=== PATIENT | female | born 1965 | race Caucasian/White ===

== ENCOUNTER 2016-11-24 20:38 | Emergency (ER) | payer OTHER ==
[~2016-11-24] VITALS: Ht 162.6 cm; Wt 113.4 kg
[~2016-11-24 20:38] MED LIST: ALBUTEROL0.09 MG/A2 INH; BROMFED DM COU473 ML PO; CYCLOBENZAPRINE10 M1 PO; ERYTHROMYCIN5 MG/GM OPH; LABETALOL HCL200 M1 PO; NAPROSYN500 M1 PO; ORPHENADRINE C100 MG PO; PREDNISONE 20MG20 MG PO; VICODIN5-300 PO
--- NOTE | 2016-11-24 21:51 | ED HEADACHE COMPLAINT ---
History of Present Illness General Chief Complaint: Headache Stated Complaint: "PER PT BAD RANDALL SINCE FRIDAY" Source: patient Exam Limitations: no limitations Vital Signs & Intake/Output Vital Signs & Intake/Output Vital Signs Date Time Temp Pulse Resp B/P B/P Pulse O2 O2 Flow FiO2 Mean Ox Delivery Rate 11/24 2229 98.0 76 17 137/83 95 Room Air 11/24 2229 Room Air 11/243 98.3 88 16 145/85 94 Room Air ED Intake and Output 11/25 0000 11/24 1200 Intake Total Output Total Balance Patient 250 lb Weight Allergies Coded Allergies: aspirin (Intermediate, HIVES 09/23/15) Reconcile Medications Albuterol (Albuterol Inhaler) 0.09 MG/Actuation MISAEL 2 INH INH Q6 PRN WHEEZING, COUGH BROMPHENIRAMINE/PSEUDOEPHED/DM (Bromfed Dm Cough Syrup) 473 ML SYR 1-2 TSP PO Q6P PRN COLD SYMPTOMS Cyclobenzaprine HCl 10 MG TABLET 1 TAB PO QPM muscle spasm ERYTHROMYCIN BASE (Erythromycin) 5 MG/GRAM (0.5 %) OINT...G. 1 BRANDON OPH 4XDP BLEPHRITIS,STYE apply 1 cm ribbon into the lower conjunctival sac HYDROCODONE/ACETAMINOPHEN (Hydrocodon-Acetaminophen 5-325) 1 TAB TAB 1 TAB PO TID pain Labetalol HCl 200 MG TABLET 1 TAB PO BID high blood pressure Naproxen (Naprosyn) 500 MG TABLET 1 TAB PO BID PRN calf pain Orphenadrine Citrate 100 MG TABLET.ER 1 TAB PO BID PRN MUSCLE PAIN/SPASMS Prednisone 20 MG TAB 2 TAB PO DAILY BRONCHITIS Triage Note: TRIAGE: BAD HEADACHE SINCE FRIDAY UNIMPROVED WITH PRESCRIBED MIGRAINE MEDS IMATREX TOOK LAST DOSE 4 HOURS AGO. 9/10 PAIN TO LEFT PARIETAL AREA. REPORTS BLURRED VISION TO LEFT EYE. PUPILS EQUAL AND REACTIVE TO LIGHT AND DEMONSTRATES GOOD FOCAL CONTROL. +PHOTOSENSITIVITY, DENIES N/V. SPEECH CLEAR. AFEBRILE IN TRIAGE Triage Nurses Notes Reviewed? yes Onset: Gradual Duration: day(s):, waxing and waning Timing: recent history Quality/Severity: moderate Head Injury Location: global, left sided Modifying Factors: Improves With: medication, rest. Associated Symptoms: nausea, photophobia HPI: 51-year-old woman history of migraine headaches on Imitrex, presents with 3 day history of left-sided headache consistent with her prior migraines. She states that she took her Imitrex with only minimal to moderate effect. She has no fever chills chest pain and syncopal type symptoms or dizziness. She does confer photophobia and nausea. She is otherwise well and has no other concerns. Past History Travel History Traveled to [place] past 21 day No Medical History Any Pertinent Medical History? see below for history Neurological: migraine EENT: NONE Cardiovascular: hypertension Respiratory: NONE Gastrointestinal: NONE Hepatic: NONE Renal: NONE Musculoskeletal: NONE Psychiatric: NONE Endocrine: NONE Blood Disorders: NONE Cancer(s): NONE ELECTRIC PILE DRIVER OPERATOR/Reproductive: NONE Surgical History Surgical History: appendectomy Psychosocial History What is your primary language Frisian Tobacco Use: Current Daily Use Daily Tobacco Use Amount/Type: =< 4 Cigarettes daily ETOH Use: denies use Illicit Drug Use: denies illicit drug use Family History Hx Contributory? No Review of Systems Review of Systems Constitutional: Reports: no symptoms. Eyes: Reports: no symptoms. Ears, Nose, Throat, Mouth: Reports: no symptoms. Respiratory: Reports: no symptoms. Cardiovascular: Reports: no symptoms. Gastrointestinal/Abdominal: Reports: no symptoms. Genitourinary: Reports: no symptoms. Musculoskeletal: Reports: no symptoms. Skin: Reports: no symptoms. Neurological/Psychological: Reports: no symptoms. Hematologic/Endocrine: Reports: no symptoms. Endocrine: Reports: no symptoms. Immunologic/Allergic: Reports: no symptoms. All Other Systems: Reviewed and Negative Physical Exam Physical Exam General Appearance: well developed/nourished, mild distress Head: atraumatic, normal appearance Eyes: Bilateral: normal appearance. Ears, Nose, Throat: normal pharynx, normal ENT inspection, hearing grossly normal, normal tm's bilaterally Neck: normal inspection, supple, full range of motion Respiratory: normal breath sounds, chest non-tender, no respiratory distress, quiet respiration, lungs clear Cardiovascular: regular rate/rhythm Gastrointestinal: normal bowel sounds, soft, non-tender, no organomegaly Back: normal inspection, normal range of motion, vertebral tenderness Extremities: normal inspection, normal capillary refill, normal range of motion, no edema Psychiatric: awake, alert, oriented x 3 Cranial Nerves: normal hearing, normal speech, PERRL Coordination/Gait: normal finger to nose, normal gait Motor/Sensory: no motor/sensory deficits Reflexes: 1+: bicep (R), bicep (L). Skin: intact, normal color, warm/dry Core Measures Severe Sepsis Present: No Septic Shock Present: No Progress Differential Diagnosis: migraine vs tension headache vs other. Plan of Care: pt given supportive medications with good response... pt to follow up with pmd. Departure Departure Disposition: HOME OR SELF CARE Condition: Stable Clinical Impression Primary Impression: Migraine headache Referrals: VANE TOMLIN APRN (PCP/Family) Departure Forms: Customer Survey General Discharge Information
[2016-11-24 22:30] VITALS: BP 137/83
== END 2016-11-24 22:31 ==
LOC: ERH 20:38
DX: G43.909 Migraine, unspecified, not intractable, without status migrainosus (principal)
CPT/HCPCS: 96372; J1885; J2550

== ENCOUNTER 2016-12-04 08:24 | Emergency (ER) | payer OTHER ==
[~2016-12-04] VITALS: Ht 162.6 cm; Wt 113.4 kg
[2016-12-04 08:33] VITALS: BP 125/89
--- NOTE | 2016-12-04 08:42 | ED GI/GU/ABDOMINAL COMPLAINT ---
History of Present Illness General Chief Complaint: Abdominal Pain/Flank Pain Stated Complaint: ABD PAIN Source: patient, old records Exam Limitations: no limitations Vital Signs & Intake/Output Vital Signs & Intake/Output Vital Signs Date Time Temp Pulse Resp B/P B/P Pulse O2 O2 Flow FiO2 Mean Ox Delivery Rate 12/04 0833 98.0 95 20 125/89 98 Room Air Allergies Coded Allergies: aspirin (Intermediate, HIVES 09/23/15) Reconcile Medications Albuterol (Albuterol Inhaler) 0.09 MG/Actuation MISAEL 2 INH INH Q6 PRN WHEEZING, COUGH BROMPHENIRAMINE/PSEUDOEPHED/DM (Bromfed Dm Cough Syrup) 473 ML SYR 1-2 TSP PO Q6P PRN COLD SYMPTOMS Cyclobenzaprine HCl 10 MG TABLET 1 TAB PO QPM muscle spasm ERYTHROMYCIN BASE (Erythromycin) 5 MG/GRAM (0.5 %) OINT...G. 1 BRANDON OPH 4XDP BLEPHRITIS,STYE apply 1 cm ribbon into the lower conjunctival sac HYDROCODONE/ACETAMINOPHEN (Hydrocodon-Acetaminophen 5-325) 1 TAB TAB 1 TAB PO TID pain Labetalol HCl 200 MG TABLET 1 TAB PO BID high blood pressure Naproxen (Naprosyn) 500 MG TABLET 1 TAB PO BID PRN calf pain Orphenadrine Citrate 100 MG TABLET.ER 1 TAB PO BID PRN MUSCLE PAIN/SPASMS Prednisone 20 MG TAB 2 TAB PO DAILY BRONCHITIS Triage Note: PT C/O UPPER MID ABDOMINAL PAIN THAT SHOOTS DOWN INTO HER LOWER ABDOMEN. PT STATES HE ABDOMEN IS DISTENDED "HARD A ROCK". PT DENIES N,V,D. STATES PAIN BEGAN AT 0600. LAST NBM THIS MORNING Triage Nurses Notes Reviewed? yes ? n Is pt currently ? No HPI: Patient was at work this morning when she developed a sharp stabbing pain to her right upper quadrant. The pain is been constant. There is no nausea or vomiting. There are no aggravating or mitigating factors. She rates the pain at 7 out of 10. She occasionally gets a spasm of pain in her bilateral lower quadrants' seconds and then go away. Patient has never had pain like this before. Patient comes in for evaluation. Patient denies any chest pain or shortness of breath. There is no diarrhea. There is no dysuria or hematuria. Past History Travel History Traveled to [place] past 21 day No Medical History Any Pertinent Medical History? see below for history Neurological: migraine EENT: NONE Cardiovascular: hypertension Respiratory: NONE Gastrointestinal: NONE Hepatic: NONE Renal: NONE Musculoskeletal: NONE Psychiatric: NONE Endocrine: NONE Blood Disorders: NONE Cancer(s): NONE CLERICAL COORDINATOR/Reproductive: NONE Surgical History Surgical History: appendectomy Psychosocial History What is your primary language Pakistani Tobacco Use: Current Daily Use Daily Tobacco Use Amount/Type: => 5 Cigarettes daily ETOH Use: denies use Illicit Drug Use: denies illicit drug use Family History Hx Contributory? No Review of Systems Review of Systems Constitutional: Reports: no symptoms. EENTM: Reports: no symptoms. Respiratory: Reports: no symptoms. Cardiovascular: Reports: no symptoms. GI: Reports: see HPI, abdominal pain, bloating. Genitourinary: Reports: no symptoms. Musculoskeletal: Reports: no symptoms. Skin: Reports: no symptoms. Neurological/Psychological: Reports: no symptoms. Hematologic/Endocrine: Reports: no symptoms. Immunologic/Allergic: Reports: no symptoms. All Other Systems: Reviewed and Negative Physical Exam Physical Exam General Appearance: well developed/nourished, alert, awake, anxious, moderate distress Head: atraumatic, normal appearance Eyes: Bilateral: PERRL, EOMI. 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 No Severe Sepsis Present: No Septic Shock Present: No Progress Differential Diagnosis: biliary colic, colon cancer, cholecystitis, diverticulitis, gastritis, hepatitis, ischemic bowel, inflamm bowel dis, pancreatitis, SBO Plan of Care: Orders Procedure Date/time Status Clear Liquid Diet 12/04 D Active Add-on Test (ER Only) 12/04 0953 Active TRIGLYCERIDES 12/04 09 Complete ETHANOL 12/04 0909 Complete URINALYSIS 12/05 0742 Active TROPONIN LEVEL 12/04 08 Complete LIPASE 12/04 0842 Complete COMPREHENSIVE METABOLIC PANEL 07/05 0842 Complete CBC WITHOUT DIFFERENTIAL 12/04 841 Complete AMYLASE 12/04 841 Complete EKG 12/04 841 Active Laboratory Tests 12/04/16908: Anion Gap 8, Estimated GFR > 60, BUN/Creatinine Ratio 20.0, Glucose 99, Calcium 9.4, Total Bilirubin 0.8, AST 14, ALT 31, Alkaline Phosphatase 61, Troponin I < 0.01, Total Protein 6.2 L, Albumin 4.1, Globulin 2.1, Albumin/Globulin Ratio 2.0, Triglycerides 124, Amylase 183 H, Lipase 1698 H, CBC w Diff NO MAN DIFF REQ, RBC 5.08, MCV 87.2, MCH 29.0, RDW 13.8, MPV 8.8, Gran % 62.4, Lymphocytes % 28.9, Monocytes % 5.1, Eosinophils % 2.3, Basophils % 1.3, Absolute Granulocytes 6.0, Absolute Lymphocytes 2.8, Absolute Monocytes 0.5, Absolute Eosinophils 0.2, Absolute Basophils 0.1, PUBS MCHC 33.2, Serum Alcohol < 10.0 Diagnostic Imaging: Viewed by Me: Ultrasound. Discussed w/RAD: Ultrasound. Radiology Impression: PATIENT: BRYAN REEVES PRESENT AGE: 51 PATIENT ACCOUNT NO: [id number] : 66 LOCATION: [facility] ORDERING PHYSICIAN: IONA JACOB MD SERVICE DATE: 12/04/16 EXAM TYPE: US - US-LIMITED ABDOMEN EXAMINATION: US ABDOMEN LIMITED CLINICAL INFORMATION: Right upper quadrant pain. COMPARISON: None TECHNIQUE: Real-time imaging of the right upper quadrant abdominal viscera. FINDINGS: Pancreatic head and proximal body within normal limits. The tail was not seen. There is no free fluid. Liver poorly visualized. The entire liver is not adequately defined. Hyperechoic consistent with fatty change. No ductal dilatation. Common duct 3 mm. The gallbladder shows no stone or edema Right kidney is 10 cm within normal limits. IMPRESSION: Limited study. Probable fatty change within the liver. Entire liver cannot be adequately characterized. There is no evidence for cholelithiasis or cholecystitis. No free fluid. DICTATED BY: ADONIS WHEAT MD DATE/TIME DICTATED:12/04/16906 FLOW COORDINATOR:TAL DATE/TIME TRANSCRIBED:12/04/16906 CONFIDENTIAL, DO NOT COPY WITHOUT APPROPRIATE AUTHORIZATION. <Electronically signed in Other Vendor System> SIGNED BY: ADONIS WHEAT MD 12/04/16 0912, PATIENT: BRYAN REEVES PRESENT AGE: 51 PATIENT ACCOUNT NO: [id number] : 66 LOCATION: [facility] ORDERING PHYSICIAN: IONA JACOB MD SERVICE DATE: 12/04/16 EXAM TYPE: CAT - CT ABD & PELVIS W IV CONTRAST EXAMINATION: CT ABDOMEN AND PELVIS WITH CONTRAST CLINICAL INFORMATION: Pancreatitis, rule out necrotizing COMPARISON: 12/15/2012 TECHNIQUE: Multidetector volumetric imaging was performed of the abdomen and pelvis before and after the IV administration of 80 mL of Omnipaque 300 intravenous contrast. Sagittal and coronal reformatted images were obtained on the technologist's workstation. FINDINGS: Stable pleural-based nodularity right base but above this there is another pleural density not seen previously. Measures 4 mm. Right base anterior. Seen on image 1. Otherwise mild atelectasis at the lung bases. Upper abdomen The liver there is normal. Spleen normal. Pancreas is felt to be within normal limits comparable to previous. No soft tissue stranding. No evidence for suspicious nonenhancement. Area of the adrenal glands is within normal limits. The kidneys are in the early nephrographic phase within normal limits. Calcified aorta which is not aneurysmal. There is no bulky adenopathy. No free fluid. Bowel pattern is nonobstructing. In the pelvis no free fluid. The bowel pattern is within normal limits. Uterus lies to the right of midline. IMPRESSION: No CT evidence of a sequela of pancreatitis. Pancreas is within normal limits comparable to previous. No fluid collection. No soft tissue stranding. Nodularity in the right lower lung zone. Diagnostic CT of the chest would be recommended if there are risk factors for lung malignancy. This may be done an outpatient basis DICTATED BY: ADONIS WHEAT MD DATE/TIME DICTATED:12/04/161107 FLOW COORDINATOR: TAL DATE/TIME TRANSCRIBED:12/04/161107 CONFIDENTIAL, DO NOT COPY WITHOUT APPROPRIATE AUTHORIZATION. <Electronically signed in Other Vendor System> SIGNED BY: ADONIS WHEAT MD 12/04/16 1117 Initial ED EKG: NSR, no ST T wave changes Comments: Patient states that the pain is much improved after the IV Toradol. Patient advised of laboratory results. CAT scan is pending. Patient states that she would like to attempt to go home. After the CAT scan results patient will be by mouth challenged with clear fluids. As long as the patient can tolerate the clear fluids she may safely be discharged. Patient was able to tolerate clear liquids for an emergency department. Patient wants to try and go home until she does. Departure Departure Disposition: HOME OR SELF CARE Condition: Stable Clinical Impression Primary Impression: Pancreatitis Referrals: GUILLERMINA APODACA,VANE PÉREZ APRN (PCP/Family) Additional Instructions: CLEAR LIQUIDS ONLY UNTIL PAIN FREE TAKE PERCOCET NEEDED FOR PAIN TAKE ZOFRAN NEEDED FOR NAUSEA RETURN IF SYMPTOMS WORSEN OR FOR ANY CONCERNS Departure Forms: Customer Survey General Discharge Information Prescriptions: Current Visit Scripts Oxycodone HCl/Acetaminophen (Percocet 5-325 MG Tablet) 1-2 TAB PO Q6P PRN PAIN #20 TAB Ondansetron (Zofran Odt) 1 TAB SL TID PRN NAUSEA #10 TAB
--- NOTE | 2016-12-04 09:12 | ULTRASOUND REPORT ---
EXAMINATION: US ABDOMEN LIMITED CLINICAL INFORMATION: Right upper quadrant pain. COMPARISON: None TECHNIQUE: Real-time imaging of the right upper quadrant abdominal viscera. FINDINGS: Pancreatic head and proximal body within normal limits. The tail was not seen. There is no free fluid. Liver poorly visualized. The entire liver is not adequately defined. Hyperechoic consistent with fatty change. No ductal dilatation. Common duct 3 mm. The gallbladder shows no stone or edema Right kidney is 10 cm within normal limits. IMPRESSION: Limited study. Probable fatty change within the liver. Entire liver cannot be adequately characterized. There is no evidence for cholelithiasis or cholecystitis. No free fluid.
[2016-12-04 09:23] LABS: ABSOLUTE BASOPHIL COUNT 0.1 /CUMM (0.0-0.2); ABSOLUTE EOSINOPHIL COUNT 0.2 /CUMM (0.0-0.7); ABSOLUTE LYMPH COUNT 2.8 /CUMM (1.2-3.4); ABSOLUTE MONOCYTE COUNT 0.5 /CUMM (0.10-0.60); BASOPHIL % 1.3 % (0.0-2.0); EOSINOPHIL % 2.3 % (0-5); GRANULOCYTE % 62.4 % (42.2-75.2); HEMATOCRIT 44.3 % (37-47); MEAN CORPUSCULAR HGB CONC 33.2 G/DL (33.0-37.0); MEAN CORPUSCULAR VOLUME 87.2 FL (81.0-99.0); MEAN PLATELET VOLUME 8.8 FL (7.4-10.4); PLATELET COUNT 307 /CUMM (130-400); RBC DISTRIBUTION WIDTH 13.8 % (11.5-14.5); RED BLOOD CELL CT 5.08 /CUMM (4.20-5.40); WHITE BLOOD CELL COUNT 9.6 /CUMM (4.8-10.8)
--- NOTE | 2016-12-04 11:17 | CT SCAN REPORT ---
EXAMINATION: CT ABDOMEN AND PELVIS WITH CONTRAST CLINICAL INFORMATION: Pancreatitis, rule out necrotizing COMPARISON: 12/15/2012 TECHNIQUE: Multidetector volumetric imaging was performed of the abdomen and pelvis before and after the IV administration of 80 mL of Omnipaque 300 intravenous contrast. Sagittal and coronal reformatted images were obtained on the technologist's workstation. FINDINGS: Stable pleural-based nodularity right base but above this there is another pleural density not seen previously. Measures 4 mm. Right base anterior. Seen on image 1. Otherwise mild atelectasis at the lung bases. Upper abdomen The liver there is normal. Spleen normal. Pancreas is felt to be within normal limits comparable to previous. No soft tissue stranding. No evidence for suspicious nonenhancement. Area of the adrenal glands is within normal limits. The kidneys are in the early nephrographic phase within normal limits. Calcified aorta which is not aneurysmal. There is no bulky adenopathy. No free fluid. Bowel pattern is nonobstructing. In the pelvis no free fluid. The bowel pattern is within normal limits. Uterus lies to the right of midline. IMPRESSION: No CT evidence of a sequela of pancreatitis. Pancreas is within normal limits comparable to previous. No fluid collection. No soft tissue stranding. Nodularity in the right lower lung zone. Diagnostic CT of the chest would be recommended if there are risk factors for lung malignancy. This may be done an outpatient basis
[2016-12-04] MEDS ORDERED: PERCOCET 5-3251 EACH PO (11:52)
[2016-12-04] MEDS ORDERED: ZOFRAN ODT4 M1 SL (11:52)
== END 2016-12-04 12:43 ==
LOC: ERH 08:24
PROVIDERS: Emergency Medicine
DX: K85.90 Acute pancreatitis without necrosis or infection, unspecified (principal)
CPT/HCPCS: 74177; 93005; 93010; 96374; G0480; J1885